=== PATIENT | male | born 1985 | race Caucasian/White ===

== ENCOUNTER 2016-07-16 17:33 | Emergency (ER) | payer BC ==
[~2016-07-16] VITALS: Ht 182.9 cm; Wt 99.8 kg
--- NOTE | 2016-07-16 17:37 | NUR ---
PT LEFT 3RD DIGIT PAIN SP FALL 10 MINS [employer]. VSS
[2016-07-16] MEDS ORDERED: LIDOCAINE 1% INJ 50 ML MDV IJ ONE (19:00)
[2016-07-16] MEDS ORDERED: TDAP [DIPH/PERTUSSIS/TET] 0.5 ML VIAL IM ONE ×2 (19:21→19:30)
--- NOTE | 2016-07-16 20:39 | NUR ---
CALLED TRUNG TO READ XRAY
[2016-07-16 21:05] VITALS: BP 100/58
== END 2016-07-16 21:11 | disposition home or self-care (01) ==
LOC: ER 17:35
DX: S62.612A Displaced fracture of proximal phalanx of right middle finger, initial encounter for closed fracture (principal); W01.0XXA Fall on same level from slipping, tripping and stumbling without subsequent striking against object, initial encounter; Y93.9 Activity, unspecified; Y92.9 Unspecified place or not applicable; Y99.9 Unspecified external cause status
CPT/HCPCS: 73140-TC; 90715; A4606; A6402; J3490; Z7610

== ENCOUNTER 2017-02-06 20:19 | Emergency (ER) | payer BC ==
--- NOTE | 2017-02-06 20:56 | NUR ---
CALLED NO ANSWER IN [facility]BY
== END 2017-02-06 21:23 | disposition left against medical advice (07) ==
LOC: ER 20:23
DX: Z53.21 Procedure and treatment not carried out due to patient leaving prior to being seen by health care provider (principal)